=== PATIENT | female | born 1965 | race Caucasian/White ===

== ENCOUNTER 2017-06-01 09:04 | Emergency (ER) | payer OTHER ==
[2017-06-01 09:43] VITALS: BP 141/81
--- NOTE | 2017-06-01 09:55 | UC ---
Lower Extremity/Ankle HPI - HPI Summary HPI Summary: per rn acute "C/o right leg pain x6 months. In the last couple of weeks, pain has gotten worse, especially w/ movement. No history of injury. " Pain is right lateral hip/pelvis. pain goes down side of right thigh. was seen by PCP 5 mo ago for this, no xrays done. she has right groin pain as well. no numbing or tingling. hurts to lay on her side, very painful by morning. no numbing or tingling. denies trauma. no LBP. painful to cross her leg here with her . - History of Current Complaint Chief Complaint: UCUpperExtremity Stated Complaint: RIGHT LEG PAIN Time Seen by Provider: 06/01/17 09:53 Hx Last Menstrual Period: 2006 - Allergies/Home Medications Allergies/Adverse Reactions: Allergies Allergy/AdvReac Type Severity Reaction Status Date / Time Penicillins Allergy Intermediate Rash Verified 06/01/17 09:36 Cephalexin Allergy Rash Verified 06/01/17 09:36 Morphine Allergy Vomiting Verified 06/01/17 09:36 Sulfa Drugs Allergy Rash Verified 06/01/17 09:36 Tetracyclines Allergy Rash Verified 06/01/17 09:36 Home Medications: Home Medications Atorvastatin* [Lipitor 10 MG*] 10 mg PO 1700 06/01/17 [History Confirmed ] PMH/Surg Hx/FS Hx/Imm Hx Previously Healthy: Yes Endocrine History: Thyroid Disease Cardiovascular History: Hypertension - Surgical History Surgical History: Yes Surgery Procedure, Year, and Place: bilateral mastectomy (2 sisters w/ breast ca , no personal hx). hysterectomy - Family History Known Family History: Positive: Hypertension, Diabetes - Social History Alcohol Use: None Substance Use Type: None Smoking Status (MU): Never Smoked Tobacco Review of Systems Constitutional: Negative Skin: Negative Eyes: Negative ENT: Negative Respiratory: Negative Cardiovascular: Negative Gastrointestinal: Negative Genitourinary: Negative Motor: Negative Neurovascular: Negative Musculoskeletal: Arthralgia, Decreased ROM Neurological: Negative Psychological: Negative Is Patient Immunocompromised?: No All Other Systems Reviewed And Are Negative: Yes Physical Exam Triage Information Reviewed: Yes Appearance: Well-Appearing, No Pain Distress, Well-Nourished Vital Signs: Initial Vital Signs Temp 98.2 F 06/01/17 09:38 Pulse 77 06/01/17 09:38 Resp 16 06/01/17 09:38 BP 141/81 06/01/17 09:38 Pulse Ox 96 06/01/17 09:38 Vital Signs Reviewed: Yes Cardiovascular Exam: Normal Cardiovascular: Positive: RRR, No Murmur, Pulses Normal Abdomen Description: Positive: Nontender, Soft Musculoskeletal: Positive: Other: - tender at rt greater trochanter reproducing the pain. limited adduction d/t pain compared to left. hamstrings with limited ROM. strength intact. Neurological Exam: Normal Psychological Exam: Normal Skin Exam: Normal Lower Extremity Course/Dx - Course Course Of Treatment: xray shows arthritis on pelvis and hip. - Differential Dx/Diagnosis Differential Diagnosis/HQI/PQRI: Arthritis, Contusion, Osteomyelitis, Sprain, Strain, Tendonitis Provider Diagnoses: Rt greater trochanteric bursitis Discharge - Discharge Plan Condition: Stable Disposition: HOME Patient Education Materials: Hip Bursitis (ED), Arthritis (ED) Referrals: JESSICA Smith [Primary Care Provider] - Navin Crisostomo MD [Medical Doctor] - Additional Instructions: We talked about some exercise for bursitis of your hip. Your xray shows arthritis of your hip as well. Various typical treatments such as PT and or steroid injections were discussed but ultimately this will be discussed further with the orthopedist.
--- NOTE | 2017-06-01 11:10 | RAD ---
Indication: Lateral RIGHT hip and groin pain for 5 months with worsening over the past month. Pain with elevation of the leg. Pain and instability on stairs. Comparison: January 18, 2007 CT. Technique: AP pelvis and AP and frog-leg lateral views RIGHT hip. Report: The RIGHT hip is normally located. No RIGHT proximal femur or pelvic fracture or stress reaction evident. Negative for pelvic joint diastases. Both hips are remarkable for mild osteophytic lipping without significant joint space narrowing. Unremarkable soft tissue contours. 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
== END 2017-06-01 11:30 | disposition home or self-care (01) ==
LOC: UCCORT 09:04
DX: M70.61 Trochanteric bursitis, right hip (principal); Y93.9 Activity, unspecified; M16.11 Unilateral primary osteoarthritis, right hip; E07.9 Disorder of thyroid, unspecified; I10 Essential (primary) hypertension; Z90.13 Acquired absence of bilateral breasts and nipples; Z90.710 Acquired absence of both cervix and uterus; Z88.1 Allergy status to other antibiotic agents; Z88.5 Allergy status to narcotic agent; Z88.0 Allergy status to penicillin; Z88.2 Allergy status to sulfonamides
CPT/HCPCS: 99211; G0463

== ENCOUNTER 2018-06-21 18:13 | Emergency (ER) | payer OTHER ==
[2018-06-21 18:39] VITALS: BP 127/82
--- NOTE | 2018-06-21 19:08 | UC ---
Knee Pain HPI - HPI Summary HPI Summary: Right leg pain started on the ankle and has moved up to the knee and now is in the lateral upper thigh. Burning pain, worse around the achilles area. - History of Current Complaint Chief Complaint: UCLowerExtremity Stated Complaint: RIGHT LEG PAIN Time Seen by Provider: 06/21/18 18:57 Hx Obtained From: Patient Hx Last Menstrual Period: 2006 Onset/Duration: Gradual Onset, Lasting Weeks - 4, Worse Since - the last week. Severity Initially: Mild Severity Currently: Severe Pain Intensity: 9 Character: Sharp, Burning Aggravating Factor(s): Weight Bearing Alleviating Factor(s): Rest, Position Associated Signs And Symptoms: Positive: Weakness, Numbness, Tingling Able to Bear Weight: Yes - Allergies/Home Medications Allergies/Adverse Reactions: Allergies Allergy/AdvReac Type Severity Reaction Status Date / Time cephalexin Allergy Rash Verified 06/21/18 18:32 morphine Allergy Nausea And Verified 06/21/18 18:32 Vomiting Penicillins Allergy Rash Verified 06/21/18 18:32 Sulfa (Sulfonamide Allergy Rash Verified 06/21/18 18:32 Antibiotics) Tetracyclines Allergy Rash Verified 06/21/18 18:32 PMH/Surg Hx/FS Hx/Imm Hx Endocrine History: Hypothyroidism Cardiovascular History: Hypertension - Surgical History Surgical History: Yes Surgery Procedure, Year, and Place: bilateral mastectomy (2 sisters w/ breast ca , no personal hx). hysterectomy - Family History Known Family History: Positive: Hypertension, Diabetes - Social History Occupation: Employed Full-time Lives: With Family Alcohol Use: None Substance Use Type: None Smoking Status (MU): Never Smoked Tobacco Review of Systems Musculoskeletal: Arthralgia Neurological: Weakness, Paresthesia, Numbness Is Patient Immunocompromised?: No All Other Systems Reviewed And Are Negative: Yes Physical Exam Triage Information Reviewed: Yes Appearance: Well-Appearing, Pain Distress - moderate, Obese Vital Signs: Initial Vital Signs Temp 97.8 F 06/21/18 18:33 Pulse 85 06/21/18 18:33 Resp 16 06/21/18 18:33 BP 127/82 06/21/18 18:33 Pulse Ox 96 06/21/18 18:33 Vital Signs Reviewed: Yes Eyes: Positive: Conjunctiva Clear Neck exam: Normal Respiratory Exam: Normal Cardiovascular Exam: Normal Musculoskeletal: Positive: Strength Limited @ - right calf heel raises, ROM Limited @ - low back Neurological Exam: Other - Patellar reflex 2+ bilaterally Neurological: Positive: Other: - increased sensation to pinprick in the S1 dermatome Psychological Exam: Normal Skin Exam: Normal Diagnostics - Radiology No standard instances Xray Interpretation: Positive (See Comments) - OA lumbar spine with DDD and retrolithesis Radiology Interpretation Completed By: ED Physician Knee Pain Course/Dx - Differential Dx/Diagnosis Differential Diagnosis/HQI/PQRI: Contusion, Fracture (Closed), Sprain, Strain Provider Diagnoses: Lumbar radiculopathy. Degenerative disc disease lumbar spine. Discharge - Sign-Out/Discharge Documenting (check all that apply): Patient Departure All imaging exams completed and their final reports reviewed: No - Discharge Plan Condition: Stable Disposition: HOME Prescriptions: Gabapentin 300 mg PO TID #90 capsule predniSONE TAB* [Deltasone 20 MG TAB*] 20 mg PO DAILY #18 tab Patient Education Materials: Lumbar Radiculopathy (ED), Prednisone (By mouth), Degenerative Disc Disease (ED) Referrals: No Primary Care Phys,NOPCP [Primary Care Provider] - 2 Weeks (for follow up on the pinched nerve) Neeta Garner MD [Medical Doctor] - If Needed (if getting worse, this is a spine surgeon) Additional Instructions: GABAPENTIN: Gabapentin is an anti-seizure medication that is more often used for nerve pain. It helps to stabilize the nerve to stop the pain. Its primary side effect is sedation which will improve over time. Most people will start with only one capsule 1 to 2 hours before bed, but if your pain is more severe you may want to start with one capsule twice a day. If the pain is still an issue after another 1-2days the dose may be increased to a maximum of 1 capsule 3 times a day. Decrease the dose by one capsule a day if there is excessive sedation or it is not working. You can also decrease it to discontinue it if the pain is resolving. - Billing Disposition and Condition Condition: STABLE Disposition: Home
[2018-06-21] MEDS ORDERED: predniSONE TAB* 20 MG PO ONE (19:50)
--- NOTE | 2018-06-22 07:56 | RAD ---
INDICATION: Right lower extremity radiculopathy clinically assigned to the L5-S1 level COMPARISON: Similar x-ray dated April 23, 2009 TECHNIQUE: 5 views of the lumbar spine were obtained. FINDINGS: The vertebral bodies are appropriately aligned in the AP projection. Mild sclerotic changes noted at the bilateral sacroiliac joints. On the oblique views the apophyseal joints are appropriately aligned. On the lateral view there is a small degree of grade 1 anterolisthesis of L4 over L5 that appear slightly worse when compared to the previous radiograph. There is loss of intervertebral disc height and bony proliferation overlying the facet joints of the lower lumbar spine. IMPRESSION: Degenerative changes as described above including grade 1 anterolisthesis of L4 over L5 that appear slightly worse when compared to the April 23, 2009 radiograph. R1
--- NOTE | 2018-06-22 13:17 | UC ---
- Progress Note Progress Note: wet read correct - EKG/XRAY/CT Xray Comments: LS- correct wet read Discharge - Sign-Out/Discharge Documenting (check all that apply): Post-Discharge Follow Up All imaging exams completed and their final reports reviewed: Yes - Discharge Plan Condition: Stable Disposition: HOME Prescriptions: Gabapentin 300 mg PO TID #90 capsule predniSONE TAB* [Deltasone 20 MG TAB*] 20 mg PO DAILY #18 tab Patient Education Materials: Prednisone (By mouth), Lumbar Radiculopathy (ED), Degenerative Disc Disease (ED) Referrals: No Primary Care Phys,NOPCP [Primary Care Provider] - 2 Weeks (for follow up on the pinched nerve) Neeta Garner MD [Medical Doctor] - If Needed (if getting worse, this is a spine surgeon) Additional Instructions: GABAPENTIN: Gabapentin is an anti-seizure medication that is more often used for nerve pain. It helps to stabilize the nerve to stop the pain. Its primary side effect is sedation which will improve over time. Most people will start with only one capsule 1 to 2 hours before bed, but if your pain is more severe you may want to start with one capsule twice a day. If the pain is still an issue after another 1-2days the dose may be increased to a maximum of 1 capsule 3 times a day. Decrease the dose by one capsule a day if there is excessive sedation or it is not working. You can also decrease it to discontinue it if the pain is resolving. - Billing Disposition and Condition Condition: STABLE Disposition: Home
== END 2018-06-21 20:06 | disposition home or self-care (01) ==
LOC: UCCORT 18:13
DX: M54.16 Radiculopathy, lumbar region (principal); M51.36 Other intervertebral disc degeneration, lumbar region; Z88.1 Allergy status to other antibiotic agents; Z88.5 Allergy status to narcotic agent; Z88.0 Allergy status to penicillin; I10 Essential (primary) hypertension
CPT/HCPCS: 72110; 99212; G0463; J7512

== ENCOUNTER 2019-05-26 08:20 | Emergency (ER) | payer OTHER ==
[2019-05-26 08:30] VITALS: BP 171/114
--- NOTE | 2019-05-26 09:17 | UC ---
Respiratory Complaint HPI - HPI Summary HPI Summary: cough / sob x 2 hrs cough is productive with yellow sputum sob is moderated , it was at rest as she woke up this morning, no chest pain cold symptoms for the past 3 days with chest congestion, sore throat, pnd no fever, + chills - History of Current Complaint Chief Complaint: UCRespiratory Stated Complaint: DIFFICULTY BREATHING Time Seen by Provider: 05/26/19 08:33 Hx Obtained From: Patient Hx Last Menstrual Period: 2006 ?: No Onset/Duration: Gradual Onset, Lasting Hours - 2, Still Present Severity Initially: Moderate Severity Currently: Moderate Pain Intensity: 0 Character: Cough: Productive Aggravating Factors: Exertion, Deep Breaths Alleviating Factors: Nothing Associated Signs And Symptoms: Positive: Dyspnea, URI, Nasal Congestion. Negative: Fever, Chills, Pleuritic Chest Pain, Wheezing, Dizziness, Calf Pain, Calf Swelling, Edema, Hoarseness, Sinus Discomfort - Allergies/Home Medications Allergies/Adverse Reactions: Allergies Allergy/AdvReac Type Severity Reaction Status Date / Time cephalexin Allergy Rash Verified 05/26/19 08:31 morphine Allergy Nausea And Verified 05/26/19 08:31 Vomiting Penicillins Allergy Rash Verified 05/26/19 08:31 Sulfa (Sulfonamide Allergy Rash Verified 05/26/19 08:31 Antibiotics) Tetracyclines Allergy Rash Verified 05/26/19 08:31 Home Medications: Home Medications FLUoxetine CAP* [Prozac CAP*] 1 cap PO DAILY 05/26/19 [History Confirmed ] PMH/Surg Hx/FS Hx/Imm Hx - Additional Past Medical History Additional PMH: [place] cholesterol, solitary kidney, anxiety Endocrine History: Thyroid Disease, Hypothyroidism Cardiovascular History: Hypertension - Surgical History Surgical History: Yes Surgery Procedure, Year, and Place: bilateral mastectomy (2 sisters w/ breast ca , no personal hx). hysterectomy - Family History Known Family History: Positive: Hypertension, Diabetes - Social History Alcohol Use: None Substance Use Type: None Smoking Status (MU): Never Smoked Tobacco Review of Systems All Other Systems Reviewed And Are Negative: Yes Constitutional: Positive: Negative Skin: Positive: Negative Eyes: Positive: Negative ENT: Positive: Negative Respiratory: Positive: Shortness Of Breath, Cough Cardiovascular: Positive: Negative. Negative: Palpitations, Chest Pain Is Patient Immunocompromised?: No Physical Exam Triage Information Reviewed: Yes Appearance: Well-Appearing, No Pain Distress, Well-Nourished Vital Signs: Initial Vital Signs Temp 97.7 F 05/26/19 08:25 Pulse 82 05/26/19 08:25 Resp 16 05/26/19 08:25 BP 171/114 05/26/19 08:25 Pulse Ox 95 05/26/19 08:25 Vital Signs Reviewed: Yes Eye Exam: Normal Eyes: Positive: Conjunctiva Clear ENT: Positive: Normal ENT inspection, Hearing grossly normal, Pharynx normal Neck: Positive: Supple, Nontender, No Lymphadenopathy Respiratory: Positive: Chest non-tender, Lungs clear, Normal breath sounds Cardiovascular: Positive: RRR, No Murmur, Pulses Normal Musculoskeletal Exam: Normal Skin Exam: Normal Diagnostics - Radiology No standard instances Radiology Interpretation Completed By: Radiologist Summary of Radiographic Findings: normal chest xray Respiratory Course/Dx - Differential Dx/Diagnosis Provider Diagnosis: Bronchitis, Hypertension Discharge ED - Sign-Out/Discharge Documenting (check all that apply): Patient Departure All imaging exams completed and their final reports reviewed: Yes - Discharge Plan Condition: Stable Disposition: HOME Prescriptions: Albuterol HFA INHALER* [Ventolin HFA Inhaler*] 2 puff INH Q6H PRN #1 mdi PRN Reason: Sob/Wheezing DOXYcycline CAP(*) [DOXYcycline 100MG CAP(*)] 100 mg PO BID #20 cap predniSONE [Prednisone 20 MG TAB] 20 mg PO BID #10 tablet Patient Education Materials: Acute Bronchitis (ED) Forms: *Work Release Referrals: Belen Burk MD [Primary Care Provider] - 5 Days - Billing Disposition and Condition Condition: STABLE Disposition: Home
== END 2019-05-26 09:19 | disposition home or self-care (01) ==
LOC: UCCORT 08:20
DX: J40 Bronchitis, not specified as acute or chronic (principal); I10 Essential (primary) hypertension; F41.9 Anxiety disorder, unspecified
CPT/HCPCS: 71046; 99212; G0463